=== PATIENT | female | born 1985 | race Caucasian/White ===

== ENCOUNTER → 2020-06-27 | Outpatient (CLI) | payer OTHER ==
--- NOTE | 2020-06-27 10:09 | RAD ---
Exam Date: 06/27/2020 8:38 AM US ABDOMEN LTD Indication: Reason: HERNIA / Spl. Instructions: / History: Impression: Sonographic images were obtained of the right lower quadrant abdominal wall at the area of interest. No focal abnormality seen in this region. No abdominal wall hernia is identified. No focal mass lesio n or collection is identified. If clinically indicated, further evaluation with cross-sectional imagi ng can be performed. Electronically signed by: Bj Baker MD (06/27/2020 10:06 AM) [id number]
== END ==
LOC: US 08:33
PROVIDERS: ATTEND Nurse Practitioner Family
DX: K46.9 Unspecified abdominal hernia without obstruction or gangrene (principal)
CPT/HCPCS: 76705